=== PATIENT | male | born 1935 | race Caucasian/White ===

== ENCOUNTER → 2016-10-13 | Outpatient (CLI) | payer OTHER, MEDICARE | LOC: BHFA 15:30 | PROVIDERS: ATTEND Internal Medicine Cardiovascular Disease | DX: I25.10 Atherosclerotic heart disease of native coronary artery without angina pectoris (principal); I34.0 Nonrheumatic mitral (valve) insufficiency ==

== ENCOUNTER → 2016-11-04 | Outpatient (CLI) | payer OTHER, MEDICARE | LOC: FIMAGING 09:43 | PROVIDERS: ATTEND Internal Medicine Cardiovascular Disease | DX: I71.4 Abdominal aortic aneurysm, without rupture (principal); I77.89 Other specified disorders of arteries and arterioles ==

== ENCOUNTER → 2017-03-21 | Outpatient (CLI) | payer OTHER, MEDICARE | LOC: FIMAGING 13:25 | PROVIDERS: ATTEND Physical Medicine & Rehabilitation Neuromuscular Medicine | DX: M51.36 Other intervertebral disc degeneration, lumbar region (principal); N20.0 Calculus of kidney ==

== ENCOUNTER → 2017-04-25 | Outpatient (CLI) | payer OTHER, MEDICARE ==
--- NOTE | 2017-04-25 14:27 | CPEEG ---
[f rep st] ELECTROENCEPHALOGRAM EEG DATE OF STUDY: 04/25/2017 INTERPRETATION: Normal EEG during wakefulness and partial sleep. There were no potentially epileptogenic abnormalities present during the recording. REPORT: This EEG contains 9 Hz alpha activity to the posterior head regions. There was no abnormal activation at rest, during photic stimulation or hyperventilation. The patient became drowsy and fell into a light sleep during the study. There was no abnormal activation during drowsiness, light sleep or during times of arousal. /[id number]/MODL MTDD
== END ==
LOC: FCPNEURO 08:01
PROVIDERS: ATTEND Psychiatry & Neurology Neurology
DX: R25.1 Tremor, unspecified (principal); G31.84 Mild cognitive impairment of uncertain or unknown etiology; R41.3 Other amnesia

== ENCOUNTER → 2017-05-20 | Outpatient (CLI) | payer OTHER, MEDICARE | LOC: BHFA 14:00 | PROVIDERS: ATTEND Internal Medicine Interventional Cardiology | DX: Z01.810 Encounter for preprocedural cardiovascular examination (principal); I48.0 Paroxysmal atrial fibrillation | CPT/HCPCS: 78452; 93017; A9500; J2785 ==

== ENCOUNTER 2017-05-31 07:12 | Observation (INO) | payer OTHER, MEDICARE ==
[2017-05-31] MEDS ORDERED: LR 1,000 ML IV ONE (07:31)
[2017-05-31] MEDS ORDERED: LIDOCAINE 1% 2 ML INJ ID PRN (07:31)
[2017-05-31] MEDS ORDERED: CHLORHEXIDINE GLUC HIBICLENS 118 ML BTL TP ONE (07:52)
[2017-05-31] MEDS ORDERED: BUPIVACAINE 0.25% 30 ML SDV ONE (07:52)
[2017-05-31] MEDS ORDERED: THROMBIN (BOVINE) 20,000 UNIT VIAL TP ONE (07:52)
[2017-05-31] MEDS ORDERED: AVITENE POWDER 1 GM JAR TP ONE (07:52)
[2017-05-31] MEDS ORDERED: BACITRACIN 50,000 UNITS/10 ML SYR IRR ONE (07:53)
[2017-05-31] MEDS ORDERED: ceFAZolin 2 GM/SWFI 2 GM/20 ML SYR IVP ONE (08:00)
[2017-05-31] MEDS ORDERED: GABAPENTIN 300 MG CAP PO ONE (08:00)
[2017-05-31] MEDS ORDERED: ACETAMINOPHEN 500 MG TAB PO ONE (08:00)
--- NOTE | 2017-05-31 08:53 | PDHPUP ---
History & Physical Update H&P update statement: This history and physical update is based on an assessment of the patient which was completed after admission or registration (within 24 hours), but prior to the surgery/procedure. H&P update: H&P reviewed & patient examined, no change in patient's condition since H&P completed (Consents signed and site marked. All questions answered.)
[2017-05-31] MEDS ORDERED: MIDAZOLAM 2 MG/2 ML VIAL IVP ONE (09:00)
--- NOTE | 2017-05-31 09:07 | PDANEPAE ---
ANE History of Present Illness l3 l4 spinal stenosis ANE Past Medical History - Cardiovascular History Hx Hypertension: Yes Hx Arrhythmias: Yes Hx Chest Pain: No Hx Coronary Artery / Peripheral Vascular Disease: Yes Hx CHF / Valvular Disease: No Hx Palpitations: No Cardiovascular History Comment: htn. afib. AAA. hyperlipidemia - Pulmonary History Hx COPD: No Hx Asthma/Reactive Airway Disease: No Hx Recent Upper Respiratory Infection: No Hx Oxygen in Use at Home: No Hx Sleep Apnea: No Sleep Apnea Screening Result - Last Documented: Positive - Neurologic History Hx Cerebrovascular Accident: No Hx Seizures: No Hx Dementia: No Neurologic History Comment: CHI. tremor - Endocrine History Hx Diabetes: No Endocrine History Comment: parathyroidectomy x2. goiter. hypothyroidism - Renal History Hx Renal Disorders: Yes Renal History Comment: BPH. hx of kidney stones - Liver History Hx Hepatic Disorders: No Hepatic History Comment: abnormal LFT's in 2009 most likely d/t bipolar medications - Neurological & Psychiatric Hx Hx Neurological and Psychiatric Disorders: Yes Neurological / Psychiatric History Comment: bipolar- psychomanic- well controlled currently. depression. anxiety. PTSD. ADD - Cancer History Hx Cancer: Yes Cancer History Comment: skin cancer- basal cell - Congenital Disorder History Hx Congenital Disorders: No - GI History Hx Gastrointestinal Disorders: No - Other Health History Other Health History: wears bilateral hearing aides. wears glasses. arthritis - Chronic Pain History Chronic Pain: Yes (lower back) - Surgical History Prior Surgeries: right hernia repair at 10 yo. bilateral PHIL. left knee scope. parathyroidectomy x2. lithotripsy ANE Review of Systems Review of Systems: - Exercise capacity METS (RN): 4 METS ANE Patient History - Allergies Allergies/Adverse Reactions: No Known Allergies Allergy (Verified 05/02/17 10:58) - Home Medications Home Medications: Escitalopram Oxalate [Lexapro 10 MG] 10 mg PO DAILY 01/27/12 [Last Taken 05:00] Tamsulosin HCl [Flomax 0.4 MG (*)] 0.4 mg PO HS 01/27/12 [Last Taken 05/30/17 20 :00] Herbals/Supplements -Info Only 1 each PO AD 02/20/13 [Last Taken 02/19/13] Divalproex ER [Depakote ER 250 MG (RX)] 250 mg PO BID 02/23/13 [Last Taken 05/31 05:00] Acetaminophen [Tylenol ES 500 mg (*)] 1,000 mg PO DAILY@13 04/27/17 [Last Taken 05/30/17 13:00] Atorvastatin Calcium [Lipitor 40 mg (*)] 40 mg PO HS 04/27/17 [Last Taken 20:00] Diazepam [Valium 2 MG (*)] 1 mg PO BID 04/27/17 [Last Taken 05/31/17 05:00] Levothyroxine [Synthroid 125 mcg (*)] 125 mcg PO DAILY06 04/27/17 [Last Taken 05:00] Mirtazapine [Remeron] 7.5 mg PO HS 04/27/17 [Last Taken 05/30/17 20:00] Propranolol HCl [Inderal 40mg (*)] 40 mg PO BID 04/27/17 [Last Taken 05/26/17] Rivaroxaban [Xarelto 10mg (*)] 10 mg PO HS 04/27/17 [Last Taken Unknown] lamoTRIgine [LamICTAL 100 MG (*)] 100 mg PO DAILY 04/27/17 [Last Taken 05/30/17 20:00] oxyCODONE IR [Oxycodone Ir (*)] 10 mg PO BID 04/27/17 [Last Taken 05/30/17 15:00 ] Calcitriol [Calcitriol (*)] 0.5 mcg PO DAILY 05/02/17 [Last Taken 05/24/17] - Smoking Hx Smoking Status: Never smoked - Family Anes Hx Family Hx Anesthesia Complications: none ANE Labs/Vital Signs - Vital Signs Blood Pressure: 178/87 Heart Rate: 50 Respiratory Rate: 18 O2 Sat (%): 92 Height: 177.8 cm Weight: 97.522 kg ANE Physical Exam - Airway Neck exam: decreased ROM Mallampati Score: Class 3 Mouth exam: normal dental/mouth exam - Pulmonary Pulmonary: no respiratory distress - Cardiovascular Cardiovascular: regular rate and rhythym - ASA Status ASA Status: III ANE Anesthesia Plan Anesthesia Plan: general endotracheal anesthesia
[2017-05-31] MEDS ORDERED: MIDAZOLAM 2 MG/2 ML VIAL ONE (09:11)
[2017-05-31] MEDS ORDERED: fentaNYL 100 MCG/2 ML INJ ONE ×3 (09:19→11:27)
[2017-05-31] MEDS ORDERED: PROPOFOL 200 MG/20 ML VIAL ONE ×2 (09:19→09:43)
[2017-05-31] MEDS ORDERED: HYDROmorphONE/DILAUDID 2 MG/ML INJ ONE (09:19)
[2017-05-31] MEDS ORDERED: ROCURONIUM 50 MG/5 ML VIAL ONE (10:12)
[2017-05-31] MEDS ORDERED: DEXAMETHASONE 4 MG/ML VIAL ONE (10:12)
[2017-05-31] MEDS ORDERED: ONDANSETRON 4 MG/2 ML VIAL ONE (10:12)
[2017-05-31] MEDS: BUPIVACAINE 0.25% 30 ML SDV ONE ×4 (10:16→11:08)
[2017-05-31] MEDS ORDERED: ONDANSETRON 4 MG/2 ML VIAL IVP PRN ×2 (10:37→11:04)
[2017-05-31] MEDS ORDERED: HYDROmorphONE/DILAUDID 1 MG/ML INJ IVP PRN ×2 (10:37→11:04)
[2017-05-31] MEDS ORDERED: NALOXONE HCL 0.4 MG/ML INJ IVP PRN (10:37)
[2017-05-31] MEDS ORDERED: LABETALOL HCL 5 MG/ML 20 ML MDV IVP PRN (10:37)
[2017-05-31] MEDS ORDERED: PROMETHAZINE HCL 25 MG/ML INJ IVP PRN (10:37)
[2017-05-31] MEDS ORDERED: POLYETHYLENE GLYCOL 3350 17 GM PKT PO PRN (11:04)
[2017-05-31] MEDS ORDERED: METHOCARBAMOL 750 MG TAB PO PRN (11:04)
[2017-05-31] MEDS ORDERED: BISACODYL 10 MG SUPP PR PRN (11:04)
[2017-05-31] MEDS ORDERED: ONDANSETRON DISINTEGRATING 4 MG TAB PO PRN (11:04)
[2017-05-31] MEDS ORDERED: LACTULOSE 20 GM/30 ML UDCUP PO PRN (11:04)
[2017-05-31] MEDS ORDERED: diphenhydrAMINE 25 MG CAP PO PRN (11:04)
[2017-05-31] MEDS ORDERED: MAGNESIUM HYDROXIDE 30 ML UDCUP PO PRN (11:04)
--- NOTE | 2017-05-31 11:07 | POSTANESTH ---
Post Anesthetic Evaluation Cardiovascular Status: Normal, Stable Respiratory Status: Normal, Stable Level of Consciousness/Mental Status: Can Participate in Eval Pain Control: Adequate, Prn Tx Ordered Nausea/Vomiting Control: Adequate, Prn Tx Ordered Complications Possibly Related to Anesthesia: None Noted
[2017-05-31] MEDS ORDERED: NS W/ 20 KCl/L 1,000 ML IV SCH (11:15)
--- NOTE | 2017-05-31 11:17 | POSTOPPROG ---
Post Op Note Date of Operation: 05/31/17 Surgeon: Fran Suarez Leadership Development Instructor: Taras Corrales PA-C Anesthesiologist: Garfield Anesthesia: GET(General Endotracheal) Pre-op Diagnosis: lumbar stenois Post-op Diagnosis: same Indication: radiculopathy, stenosis Procedure: L34 laminectomy and decompression Findings: Please see dictation Inf/Abcess present in the surg proc area at time of surgery?: No Depth: Organ Space EBL: Minimal Complications: none Drains: Vick Hays Specimen(s): none PA Addendum - Addendum .: S: Pt in PACU, c/o back pain and leg numbness. Leg numbness is the same as pre op. O: AAOx3 NAD VSS MAEx4 Motor 5/5 BUE/BLE Incision dressed cdi JPx1 A: 81 yo M s/p L34 laminectomy and decompression P: Pain management Follow YULIANA output No brace, spine precautions TEDs, SCDs, lovenox POD#1 Resume xarelto POD#5 PT/OT Call NS with any questions/concerns D/w Dr Suarez
[2017-05-31] MEDS: fentaNYL 100 MCG/2 ML INJ IVP PRN ×2 (11:28→11:56)
[2017-05-31] MEDS: oxyCODONE IR 5 MG TAB PO PRN ×3 (13:14→23:05)
[2017-05-31] MEDS: ACETAMINOPHEN 500 MG TAB PO SCH ×2 (14:42→21:24)
--- NOTE | 2017-05-31 15:54 | GOP ---
[f rep st] OPERATIVE REPORT DATE OF OPERATION: 05/31/2017 SURGEON: Fran Suarez MD NEUROSURGEON: Fran Suarez MD FURNITURE ASSOCIATE: Ashlie Corrales, RAVINDRA. ANESTHESIA: General. PREOPERATIVE DIAGNOSIS: 1. L3-L4 severe spinal stenosis with spondylosis. 2. Low back pain and lower extremity claudication. 3. Treatment refractory to nonoperative intervention. POSTOPERATIVE DIAGNOSIS: 1. L3-L4 severe spinal stenosis with spondylosis. 2. Low back pain and lower extremity claudication. 3. Treatment refractory to nonoperative intervention. PROCEDURE PERFORMED: 1. L3-L4 decompressive laminectomy with bilateral medial facetectomies and spinal cord decompression . 2. Use of intraoperative fluoroscopy, less than 1 hour physician time. 3. Use of neuromonitoring. 4. Use of operating microscope. FINDINGS: SPECIMENS: None. ESTIMATED BLOOD LOSS: 50 mL. INDICATIONS: The patient is a 81-year-old gentleman who unfortunately suffered from low back pain wi th lower extremity claudication and radiculopathy. He had evidence of multiple levels of spondylosis with severe spinal stenosis L3-L4. After discussion of risks, benefits, and alternatives and after failing nonoperative interventions, we decided to proceed forth with surgery as described above. DESCRIPTION OF PROCEDURE: Patient was brought to operating theater and underwent general endotrachea l anesthesia without complications. He had Venodynes, DIMAS hose and the appropriate lines placed by A nesthesia. He was then flipped prone onto the Anupam frame, and all bony processes inspected and pad ded. The lower lumbar region was prepped and draped in the usual sterile surgical fashion. A time-o ut was completed per protocol. The patient received antibiotics within 1 hour of incision. Using lateral fluoroscopy and a spinal needle, we then picked our entry point to the L3-L4 level. Th is was marked in the midline. The incision was infiltrated with Marcaine with epinephrine. The incis ion was taken down with the scalpel blade and, using monopolar, taken down the midline to the lumbodo rsal fascia. Subperiosteal dissection carried to the medial facet joints of L3-L4. Deep retractors placed to maintain our exposure. We again confirmed the level with lateral fluoroscopy. The [facility] ope was brought into field to assist with microscopic dissection and maintain illumination and magnif ication. Using a combination of bur tip on the drill bit, Kerrison punches, and Leksell rongeur, we completed a decompressive laminectomy with bilateral medial facetectomies, L3-L4. We completed until we felt everything was well decompressed to manual palpation. At this point, we obtained hemostasis with the bipolar. The wound was irrigated copiously with bacitracin irrigation. The wound was then closed in multiple layers using Vicryl sutures to deep layers and Dermabond for the skin. We did le ave a drain in the subfascial space because the patient was noted to be somewhat oozy upon closure. The patient was then flipped supine onto the transfer cart, where he was awakened, extubated, taken t o the recovery room in stable condition. There were no complications and no noted changes on neuromo nitoring throughout the procedure. COMPLICATIONS: None. /[id number]/MODL
[2017-05-31] MEDS ORDERED: TAMSULOSIN HCL 0.4 MG CAP PO SCH (21:00)
[2017-05-31] MEDS ORDERED: ATORVASTATIN CALCIUM 40 MG TAB PO SCH (21:00)
[2017-05-31] MEDS ORDERED: NON-FORMULARY NEW DRUG (Mirtazapine [Remeron] 7.5 MG) PO SCH (21:00)
[2017-05-31] MEDS ORDERED: MIRTAZAPINE 15 MG TAB PO SCH (21:00)
[2017-05-31] MEDS: SENNOSIDES/DOCUSATE SODIUM TAB PO SCH (21:23)
[2017-05-31] MEDS: FAMOTIDINE 20 MG TAB PO SCH (21:23)
[2017-05-31] MEDS: DIVALPROEX ER 250 MG TAB PO SCH (21:23)
[2017-05-31] MEDS: DIAZEPAM 2 MG TAB PO SCH (21:27)
[2017-05-31] MEDS: PROPRANOLOL HCL 40 MG TAB PO SCH (23:20)
[2017-06-01] MEDS: ACETAMINOPHEN 500 MG TAB PO SCH (05:47)
[2017-06-01] MEDS ORDERED: LEVOTHYROXINE 125 MCG TAB PO SCH (06:00)
[2017-06-01] MEDS: oxyCODONE IR 5 MG TAB PO PRN ×2 (07:04→10:58)
[2017-06-01] MEDS: DIVALPROEX ER 250 MG TAB PO SCH (08:17)
[2017-06-01] MEDS: SENNOSIDES/DOCUSATE SODIUM TAB PO SCH (08:18)
[2017-06-01] MEDS: DIAZEPAM 2 MG TAB PO SCH (08:19)
[2017-06-01] MEDS: FAMOTIDINE 20 MG TAB PO SCH (08:19)
--- NOTE | 2017-06-01 08:30 | NEUSURGPN ---
Date of Surgery: 05/31/17 Post Op Day: 1 Assessment/Plan: 72 year old s/p L3-[address] Suarez for back pain POD#1 Plan: -Patient doing well this am, pre operative pain improved and pain well controlled with current medications -PT/OT to eval this am -Will remove YULIANA just prior to discharge -Patient may dc home today pending therapies recs -Patient discussed with Dr Suarez -Please call neurosurgery with any questions/concerns Subjective: Pain well managed this am Objective: AxO x3 PERRLA No droop 5/5 BLE Sensation intact to light touch BLE Dressing CDI YULIANA patent Neuro Check Frequency: per routine Urinary Catheter in Place: No - Physician Discussed Patient with : Daniela Neurosurgery Physical Exam - Vitals, I&O, Labs I and O 05/31/17 06/01/17 06/02/17 05:59 05:59 05:59 Intake Total 1875 Output Total 880 Balance 995 Weight 97.522 kg Intake: Oral (ml) 825 IV Intake (ml) 1050 Output: Urine (ml) 725 Urinal 725 Estimated Blood Loss (ml) 20 YULIANA Drain Output (ml) 135 #1 Back Vick Hays 135 Other: Intake Quantity Yes Sufficient Number of Voids Toilet 1 Urinal 1 Vital Signs Temp Pulse Resp BP Pulse Ox 37.0 C 52 L 16 154/86 H 91 L 06/01/17 07:18 06/01/17 07:18 06/01/17 07:18 06/01/17 08:06 06/01/17 07:18 ICD10 Worksheet Patient Problems: Problems Problem Status Onset Primary osteoarthritis of left hip Acute
[2017-06-01] MEDS ORDERED: CALCITRIOL 0.25 MCG CAP PO SCH (09:00)
[2017-06-01] MEDS ORDERED: ESCITALOPRAM OXALATE 10 MG TAB PO SCH (09:00)
[2017-06-01] MEDS ORDERED: ENOXAPARIN 40 MG/0.4 ML SYR SC SCH (09:00)
[2017-06-01] MEDS ORDERED: lamoTRIgine 100 MG TAB PO SCH (09:00)
--- NOTE | 2017-06-01 10:10 | PDIAF ---
- Diagnosis Diagnosis: Lumbar stenosis Code Status: Full Code - Medication Management Discharge Medications: Medications to Continue on Transfer Escitalopram Oxalate [Lexapro 10 MG] 10 mg PO DAILY 01/27/12 [Last Taken 05:00] Tamsulosin HCl [Flomax 0.4 MG (*)] 0.4 mg PO HS 01/27/12 [Last Taken 05/30/17 20 :00] Herbals/Supplements -Info Only 1 each PO AD 02/20/13 [Last Taken 02/19/13] Divalproex ER [Depakote ER 250 MG (*)] 250 mg PO BID 02/23/13 [Last Taken 05:00] Acetaminophen [Tylenol ES 500 mg (*)] 1,000 mg PO DAILY@13 04/27/17 [Last Taken 05/30/17 13:00] Atorvastatin Calcium [Lipitor 40 mg (*)] 40 mg PO HS 04/27/17 [Last Taken 20:00] Diazepam [Valium 2 MG (*)] 1 mg PO BID 04/27/17 [Last Taken 05/31/17 05:00] Levothyroxine [Synthroid 125 mcg (*)] 125 mcg PO DAILY06 04/27/17 [Last Taken 05:00] Mirtazapine [Remeron] 7.5 mg PO HS 04/27/17 [Last Taken 05/30/17 20:00] Propranolol HCl [Inderal 40mg (*)] 40 mg PO BID 04/27/17 [Last Taken 05/26/17] lamoTRIgine [LamICTAL 100 MG (*)] 100 mg PO DAILY 04/27/17 [Last Taken 05/30/17 20:00] Calcitriol [Calcitriol (*)] 0.5 mcg PO DAILY 05/02/17 [Last Taken 05/24/17] Methocarbamol [Robaxin 750 mg (*)] 750 mg PO QID PRN #60 tab 06/01/17 [Last Taken Unknown] Sennosides/Docusate Sodium [Senokot-S] 1 - 2 tab PO BID tab 06/01/17 [Last Taken Unknown] oxyCODONE IR [Oxycodone Ir (*)] 5 - 10 mg PO Q4HRS PRN #60 tab 06/01/17 [Last Taken Unknown] Rivaroxaban [Xarelto 10mg (*)] 10 mg PO HS #0 06/07/17 [Last Taken Unknown] Discharge Medications: Refer to the Discharge Home Medication list for PRN reason. PICC Care - Routine: N/A - Orders Services needed: Home Care, Physical Therapy, Occupational Therapy Home Care Face to Face: I certify that this patient was under my care and that I had the required [id number] encounter meeting the encounter requirements on the discharge day. My findings support the fact that the patient is homebound as defined in Home Care Face to Face Continued: CMS Chapter 7 Medicare Benefits Manual 30.1.1 , The condition of the patient is such that there exists a normal inability to leave home and consequently, leaving home would require a considerable and taxing effort. Diet Recommendation: no restrictions on diet Diet Texture: Regular Texture Diet - Follow Up Care Current Providers and Referrals: Loreto Mcclendon MD [Primary Care Provider] - Fran Suarez MD [Medical Doctor] - follow up in 2 weeks
[2017-06-01] MEDS: PROPRANOLOL HCL 40 MG TAB PO SCH (10:37)
[2017-06-01 12:40] VITALS: BP 160/81; PULSE 55; RESP 14; TEMP 98.2; O2SAT 96
--- NOTE | 2017-06-01 14:54 | ASMTCMCOM ---
CM Note CM Note Notes: PT/OT rec HHC, pt agreeable and chooses [facility]. David at [facility] states they can accept pt. Address/phone verified. Orders to be obtained via [employer]. Date Signed: 06/01/2017 01:58 PM Electronically Signed By:ROSA Sepulveda
--- NOTE | 2017-06-01 14:55 | ASDISCHSUM ---
Discharge Information Plan Status:Home with Home Health Medically Cleared to Leave: Discharge Date:06/01/2017 12:58 PM CM D/C Disposition:Home Health Service ADT D/C Disposition:[id number] Projected Discharge Date:06/01/2017 11:00 AM Transportation at D/C:Family Discharge Delay Reason: Follow-Up Date:06/01/2017 11:00 AM Discharge Slot: Final Diagnosis: Placement Information Referral Type:*Home Health Care Services Referral ID:[id number] Provider Name:[facility] Address 1:[address] Address 2: City:[place] Selection Factors: State:[place] Patient Contact Information Contact Name:TRINA Relationship: Address:[address] [facility] [facility] [address] Work Phone: City:[place] Alternate Phone: State/Zip Code:[place] [address] Email: Financial Information Financial Class:Medicare Primary Plan Desc:MEDICARE OUTPATIENT Primary Plan Number:[id number] Secondary Plan Desc:[employer]/MDR SUPPLEMENT Secondary Plan Number:[id number] Assessment Information [facility] CM Progress Note CM Note CM Note Notes: PT/OT rec HHC, pt agreeable and chooses [facility]. David at [facility] states they can accept pt. Address/phone verified. Orders to be obtained via [employer]. Date Signed: 06/01/2017 01:58 PM Electronically Signed By:ROSA Sepulveda Intervention Information
== END 2017-06-01 12:58 | disposition home health service (06) ==
LOC: F3N 07:12
PROVIDERS: ADMIT Neurological Surgery; ATTEND Neurological Surgery
DX: M48.062 Spinal stenosis, lumbar region with neurogenic claudication (principal); M51.36 Other intervertebral disc degeneration, lumbar region; M54.40 Lumbago with sciatica, unspecified side; N20.0 Calculus of kidney; Z79.01 Long term (current) use of anticoagulants; Z87.891 Personal history of nicotine dependence
CPT/HCPCS: 63047; 76001; 97116; 97161; 97166; 97535; G8978; G8979; G8980; G8987; G8988; G8989; J0171; J0690; J1100; J1170; J1650; J2250; J2405; J2704; J3010

== ENCOUNTER → 2017-10-18 | Outpatient (CLI) | payer OTHER, MEDICARE | LOC: BHFA 15:30 | PROVIDERS: ATTEND Internal Medicine | DX: I25.10 Atherosclerotic heart disease of native coronary artery without angina pectoris (principal) ==